=== PATIENT | female | born 1950 | race Caucasian/White ===

== ENCOUNTER 2018-02-14 15:26 | Emergency (ER) | payer MEDICARE, BC ==
[2018-02-14] MEDS ORDERED: PANTOPRAZOLE SODIUM 40 MG/10 ML PDS IV ONE (15:32)
[2018-02-14] MEDS ORDERED: KETOROLAC TROMETHAMINE 30 MG/ML SOL IV ONE ×2 (15:32→16:15)
[2018-02-14] MEDS ORDERED: ONDANSETRON HCL 4 MG/2 ML SOL IV ONE (15:32)
[2018-02-14 15:36] LABS: BASOPHILS % (AUTO) 1 % (0-3); EOSINOPHILS % (AUTO) 0 % (0-9); HEMATOCRIT 43 % (35-47); LYMPHOCYTES % (AUTO) 13.4 % (10-50); MEAN CORPUSCULAR HEMOGLOBIN 30.8 pg (27.0-32.0); MEAN CORPUSCULAR HGB CONC 32.4 gm/dl (32.0-36.0); MEAN CORPUSCULAR VOLUME 95 fL (81-99); MONOCYTES % (AUTO) 6.3 % (0-12); NEUTROPHILS % (AUTO) 79.5 % (37-80)
[2018-02-14] MEDS ORDERED: KETOROLAC TROMETHAMINE 30 MG/ML SOL ONE ×2 (15:38→16:47)
[2018-02-14] MEDS ORDERED: PANTOPRAZOLE SODIUM 40 MG/10 ML PDS ONE (15:38)
[2018-02-14] MEDS ORDERED: ONDANSETRON HCL 4 MG/2 ML SOL ONE (15:38)
[2018-02-14] MEDS ORDERED: SODIUM CHLORIDE 0.9% 1000ML 1,000 ML IV ONE (15:44)
[2018-02-14] MEDS ORDERED: SODIUM CHLORIDE 0.9% 1000ML 1,000 ML IV SCH (15:45)
[2018-02-14 15:51] LABS: ALBUMIN 3.8 gm/dl (3.4-5.0); BILIRUBIN,TOTAL 0.6 mg/dl (0.2-1.0); CARBON DIOXIDE 24.3 mEq/L (21-32); CREATININE 0.9 mg/dl (0.60-1.00); POTASSIUM 3.8 mMol/L (3.5-5.1)
[2018-02-14 16:01] VITALS: RESP 20
[2018-02-14] MEDS ORDERED: MORPHINE SULFATE 10 MG/ML SOL IV ONE ×2 (17:10→20:01)
[2018-02-14] MEDS ORDERED: MORPHINE SULFATE 10 MG/ML SOL ONE ×2 (17:12→20:02)
[2018-02-14 19:13] VITALS: BP 120/67; PULSE 92; O2SAT 94
[2018-02-14 19:14] VITALS: TEMP 100.7
[2018-02-14] MEDS ORDERED: SODIUM CHLORIDE 0.9% FLUSH 10 ML SOL IV PRN (20:15)
== END 2018-02-14 20:08 | disposition short-term general hospital (02) | DRG 395 ==
LOC: ED 15:26
DX: K35.80 Unspecified acute appendicitis (principal)
CPT/HCPCS: 74177; 80053; 84484; 85025; 96365; 96374; 96375; 99283; 99285; J1885; J2270; J2405; Q9967

== ENCOUNTER 2018-04-14 05:39 | Emergency (ER) | payer MEDICARE, BC ==
[2018-04-14 05:46] VITALS: RESP 16; TEMP 96.7
[2018-04-14] MEDS ORDERED: TETRACAINE HCL 0.5 % 1 DROP SOL ONE (06:10)
[2018-04-14] MEDS ORDERED: TETRACAINE HCL 1% SOL IJ ONE (06:38)
[2018-04-14 06:41] VITALS: BP 121/82; PULSE 76; O2SAT 93
== END 2018-04-14 06:32 | disposition home or self-care (01) | DRG 125 ==
LOC: ED 05:39
DX: S05.02XA Injury of conjunctiva and corneal abrasion without foreign body, left eye, initial encounter (principal)
CPT/HCPCS: 99282; 99283; A9270-GY